=== PATIENT | female | born 1970 ===

== ENCOUNTER 2020-10-29 06:32 | Day surgery (SDC) | payer OTHER ==
[~2020-10-29 06:32] MED LIST: ATORVASTATIN CA10 MG PO; METFORMIN HCL500 M3 PO; ZESTRIL2.5 MG PO
[2020-10-29] MEDS ORDERED: PERCOCET 5-3251 EACH PO (11:57)
== END 2020-10-29 18:30 | disposition home or self-care (01) ==
LOC: CIR.AMB 06:32
PROVIDERS: ATTEND Surgery
DX: D35.1 Benign neoplasm of parathyroid gland (principal); Z20.822 Contact with and (suspected) exposure to COVID-19